=== PATIENT | male | born 1955 | race Caucasian/White ===

== ENCOUNTER 2023-03-04 09:08 | Outpatient (CLI) | payer OTHER, SELFPAY ==
--- NOTE | 2023-03-04 09:55 | P.ANHP_ITS ---
HPI - Pre-Anesthesia History of Present Illness Time Seen by Provider: 10:00 Date Seen: 03/04/23 Date of service: 03/04/23 Source: patient and old records reviewed Review of Systems Status of ROS Reports: 10 or more systems reviewed and unremarkable except as noted in History and below [facility] Medical History (Updated 03/04/23 @ 09:56 by Kevon Bean MD) Colonoscopy planned Social History Smoking Status: Former smoker Meds Home Medications and Allergies Home Medications Medication Instructions Recorded Confirmed Type simvastatin 20 mg tablet (Zocor) 20 mg PO QDAY 05/14/22 05/14/22 History triamterene 75 1 tab PO QAM 05/14/22 05/14/22 History mg-hydrochlorothiazide 50 mg tablet Allergies Allergy/AdvReac Type Severity Reaction Status Date / Time oxycodone [From OxyContin] Allergy Severe Hives Verified 05/14/22 08:37 Exam Const Documenting provider has reviewed patient's vital signs: yes Common normals: no apparent distress, oriented x3, healthy appearing, alert and well nourished General appearance: cooperative and comfortable Orientation/consciousness: Yes awake HENMT Common normals: normocephalic Head and scalp: normocephalic Neck & C-Spine Common normals: full ROM Chest Chest: symmetrical chest wall rise Resp Common normals: normal respiratory effort, no retractions, no use of accessory muscles and clear to auscultation bilaterally Auscultation: clear to auscultation bilaterally Cardio Common normals: regular rate, regular rhythm, S1 normal heart sound, S2 normal heart sound and no murmurs Rate: regular rate Rhythm: regular rhythm Heart sounds: S1 normal and S2 normal Neuro Common normals: oriented x3 Sensorium/orientation: awake and alert Assessment and Plan Assessment and plan (1) Colonoscopy planned: Status: Acute Plan ok to proceed with colonoscopy
--- NOTE | 2023-03-04 11:05 | W.ANESCHARGE ---
Anesthesia Charges Start Date/Time Anesthesia Start Date: 03/04/23 Anesthesia Start Time: 10:13 Stop Date/Time Anesthesia Stop Date: 03/04/23 Anesthesia Stop Time: 11:03
--- NOTE | 2023-03-04 11:26 | W.ANESCHARGE ---
Anesthesia Charges Start Date/Time Anesthesia Start Date: 03/04/23 Anesthesia Start Time: 10:13 Stop Date/Time Anesthesia Stop Date: 03/04/23 Anesthesia Stop Time: 11:03
== END 2023-03-04 09:09 | disposition home or self-care (01) ==
LOC: OP CLINIC 09:09
PROVIDERS: PCP Family Medicine; Visit Provider Surgery
DX: Z86.010 Personal history of colon polyps (principal); K63.5 Polyp of colon; K64.4 Residual hemorrhoidal skin tags; K64.8 Other hemorrhoids
CPT/HCPCS: 45385; 811; 812; 88305; J2704